=== PATIENT | female | born 1955 | race Caucasian/White ===

== ENCOUNTER 2019-09-17 07:34 | Day surgery (SDC) | payer MEDICARE, BC, SELFPAY ==
[2019-09-16 11:15] VITALS: BMI 32.4
--- NOTE | 2019-09-17 07:49 | ANES.PREANE2 ---
Pre-Anesthetic Assessment Pre-Anesthetic Assessment: Height/Weight: Height 1.63 m Weight 85.729 kg Preop Diagnosis: dysphagia Proposed Procedure: Operation Date: 09/17/19 09:15 Proposed Procedures p EGD 72678 K21.9(Not Applicable) - Esau Leone MD Familial anesthetic complications: None Was Beta Zoe taken within 24 hours: N/A Last intake: NPO > 8 hrs Social: Social History: No alcohol and No tobacco Exam: Pre-Anes Outpt Exam: alert, oriented x 3, clear to auscultation bilaterally and regular rate & rhythm Airway: Cervical ROM: WNL MP: 3 Dentition: Full Pulmonary: Pulmonary: None reported CV/HEM: CV/HEM: HTN : : None reported Hepatic: Hepatic: None reported GI: GI: None reported Metabolic: Metabolic: Thyroid Musc/skel: Musc/skel: None reported Comments: osteoporosis Neuropsych: Neuropsych: None reported Anesthetic Plan: ASA status: 2 Anesthesia: MAC Risk of > 500 ml blood loss (7ml/kg in children): No PFSH Anesthesia PFSH: Social History Smoking and tobacco status: never smoked Second hand smoke exposure: Yes Alcohol intake: never Data Anesthesia Cardiac Studies: No Data to Display
[2019-09-17 08:45] VITALS: BP 151/87; PULSE 68; RESP 18; TEMP 36.2; O2SAT 97
[2019-09-17] MEDS: sodium chloride 0.9% 1,000 ML 30 ML (08:49)
--- NOTE | 2019-09-17 10:09 | W.PM.OPSUD ---
Surgery/Procedure H&P Update DATE OF PROCEDURE: September 17, 2019 DATE H&P PERFORMED: 09/11/19 H&P UPDATE INFORMATION: I have reviewed H&P completed within last 30 days, I have examined patient prior to procedure and No changes to prior documentation PREOP DIAGNOSIS: Difficulty in swallowing PRIMARY INDICATION FOR PROCEDURE: THE SAME PLANNED PROCEDURE: Operation Date: 09/17/19 09:15 Proposed Procedures p EGD(Not Applicable) - Esau Leone MD
[2019-09-17 10:31] VITALS: BP 121/75; PULSE 64; RESP 16; TEMP 36.3; O2SAT 98
--- NOTE | 2019-09-17 10:35 | ANE.PACU2 ---
 Inpatient post-anesthesia follow up: Airway intact: Yes Vital signs: Temperature 97.1 F Pulse Rate 68 Respiratory Rate 18 Blood Pressure 151/87 Pulse Oximetry 97 Oxygen Delivery Me thod Room Air Oxygen Flow Rate Fraction of Inspir ed Oxygen Hydration adequate: Yes Nausea and vomiting: No Pain level: 1 Mental status: Baseline
[2019-09-17 10:42] VITALS: BP 138/80; PULSE 66; RESP 16; O2SAT 99
[2019-09-17 10:52] VITALS: BP 139/80; PULSE 73; RESP 16; O2SAT 98
== END 2019-09-17 11:00 | disposition home or self-care (01) ==
PROVIDERS: PCP Nurse Practitioner Family; Visit Provider Surgery
PROC: 0DJ08ZZ Inspection of Upper Intestinal Tract, Via Natural or Artificial Opening Endoscopic (ICD-10-PCS; CPT 43235; principal; 2019-09-17 09:15)
DX: R13.10 Dysphagia, unspecified (principal); K44.9 Diaphragmatic hernia without obstruction or gangrene; Z98.84 Bariatric surgery status; I10 Essential (primary) hypertension; M81.0 Age-related osteoporosis without current pathological fracture
CPT/HCPCS: 12345; 43235; J2704; J7030

== ENCOUNTER 2019-09-26 08:05 | Outpatient (CLI) | payer MEDICARE, BC, SELFPAY ==
--- NOTE | 2019-09-26 08:15 | FL_ITS ---
WS: [id number] MODIFIED BARIUM SWALLOW TECHNIQUE: Modified barium swallow with speech therapy using multiple consistencies. FLUOROSCOPY TIME: 2.2 minutes. CLINICAL INFORMATION: Other dysphagia COMPARISON: None. FINDINGS: Multiple consistencies utilized. No evidence of aspiration or penetration. No difficulties with bariu m tablet. Mild esophageal dysmotility visualized. FL/FL barium swallow modifd [id number] IMPRESSION: 1. No evidence of todd aspiration or penetration. 2. Mild esophageal dysmotility visualized in the mid and distal esophagus. 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
== END 2019-09-26 08:06 | disposition home or self-care (01) ==
LOC: RAD 08:10
PROVIDERS: PCP Nurse Practitioner Family; Visit Provider Surgery
DX: R13.19 Other dysphagia (principal)
CPT/HCPCS: 74230; 92611

== ENCOUNTER 2019-09-29 10:00 | Outpatient (CLI) | payer MEDICARE, BC, SELFPAY ==
--- NOTE | 2019-09-29 10:59 | FL_ITS ---
WS: [id number] UT upper GI w air [id number] REASON FOR EXAM: DYSPHAGIA FLUOROSCOPY TIME: 1.2 minutes FINDINGS: The proximal esophagus suggests spasm and a small area intermittent in the proximal esopha yessi suggest a small diverticulum. This was not well seen on fluoroscopy but seen on the projections. The distal esophagus was dilated suggesting mild cardiospasm. A small hiatal hernia is noted. A gastrojejunostomy is noted. is noted and a diverticulum is seen off the proximal small bowel below the anastomosis. Rapid transit time through the small bowel is noted. FL/FL upper GI w air [id number] IMPRESSION: Erosive gastritis is suspected in the proximal esophagus with a small diverticu lum versus small ulcer in the proximal esophagus. Small hiatal hernia. Dilation suggesting cardiospasm of the distal esophagus. A gastrojejunostomy is seen within outpocketing below the anastomosis suggestin g a diverticulum. A rapid transit time through the small bowel is seen.
== END 2019-09-29 10:01 | disposition home or self-care (01) ==
PROVIDERS: PCP Nurse Practitioner Family; Visit Provider Surgery
DX: K44.9 Diaphragmatic hernia without obstruction or gangrene (principal); Z93.4 Other artificial openings of gastrointestinal tract status; R13.10 Dysphagia, unspecified
CPT/HCPCS: 74246

== ENCOUNTER → 2020-04-30 13:41 | Outpatient (BNVA) | payer MEDICARE, BC, SELFPAY | PROVIDERS: PCP Nurse Practitioner Family; Visit Provider Psychiatry & Neurology Psychiatry | DX: F33.2 Major depressive disorder, recurrent severe without psychotic features (principal); F41.1 Generalized anxiety disorder; F13.10 Sedative, hypnotic or anxiolytic abuse, uncomplicated | CPT/HCPCS: 99204 ==

== ENCOUNTER → 2020-05-28 07:41 | Outpatient (BNVA) | payer MEDICARE, BC, SELFPAY | PROVIDERS: PCP Nurse Practitioner Family; Visit Provider Psychiatry & Neurology Psychiatry | DX: F41.1 Generalized anxiety disorder (principal); F33.2 Major depressive disorder, recurrent severe without psychotic features; F13.10 Sedative, hypnotic or anxiolytic abuse, uncomplicated | CPT/HCPCS: 99213 ==

== ENCOUNTER → 2022-06-01 11:52 | Outpatient (BNVA) | payer MEDICARE, SELFPAY | PROVIDERS: PCP Nurse Practitioner Family; Visit Provider Nurse Practitioner Psychiatric/Mental Health | DX: Z03.89 Encounter for observation for other suspected diseases and conditions ruled out (principal); F33.2 Major depressive disorder, recurrent severe without psychotic features; F13.10 Sedative, hypnotic or anxiolytic abuse, uncomplicated; F41.1 Generalized anxiety disorder; Z79.899 Other long term (current) drug therapy | CPT/HCPCS: 80053; 80306; 81001; 82306; 84443 ==

== ENCOUNTER → 2022-07-11 10:47 | Outpatient (BNVA) | payer MEDICARE, SELFPAY | PROVIDERS: PCP Nurse Practitioner Family; Visit Provider Nurse Practitioner Psychiatric/Mental Health | DX: Z79.899 Other long term (current) drug therapy (principal); F33.2 Major depressive disorder, recurrent severe without psychotic features; F13.10 Sedative, hypnotic or anxiolytic abuse, uncomplicated; F41.1 Generalized anxiety disorder | CPT/HCPCS: 80178 ==